=== PATIENT | male | born 2000 | race Caucasian/White ===

== ENCOUNTER → 2024-06-21 | Outpatient (BNVA) | payer MEDICAID, SELFPAY | END | disposition home or self-care (01) | PROVIDERS: PCP Physician Assistant; Referring Provider Physician Assistant; Visit Provider Urology | DX: N31.9 Neuromuscular dysfunction of bladder, unspecified (principal); Q93.59 Other deletions of part of a chromosome; Z93.51 Cutaneous-vesicostomy status; Z97.8 Presence of other specified devices | CPT/HCPCS: 99202; G0463 ==

== ENCOUNTER 2025-02-28 15:10 | Emergency (ER) | payer MEDICAID, SELFPAY ==
[2025-02-28 15:41] VITALS: PULSE 115; RESP 20; TEMP 37.7; O2SAT 99
--- NOTE | 2025-02-28 15:46 | EDRME_ITS ---
Rapid Medical Screening Exam FORMERLY [facility], [facility] Arrival date/time: 02/28/25 15:10 24-year-old male with a history of a developmentally delayed presents to the emergency room with a chief complaint of a fever and abdominal pain. Patient has a stoma in his bladder where his mother uses a catheter to get urine out daily. I have greeted and performed a focused initial assessment of this patient. A comprehensive ED assessment and evaluation of the patient, analysis of all test results, and completion of the medical decision making process will be conducted by additional ED providers. Chief Complaint: Fever Time Seen by Provider: 02/28/25 15:31 Vital signs: Vital Signs Temperature 99.9 F 02/28/25 15:41 Pulse Rate 115 H 02/28/25 15:41 Respiratory Rate 20 02/28/25 15:41 Pulse Oximetry (%) 99 02/28/25 15:41 Oxygen Delivery Method Room Air 02/28/25 15:41 Vital signs reviewed by provider: Yes Exam: Redness warmth around the stoma in his suprapubic area Soft nontender abdomen Clinical Impression: Cellulitis/urinary tract infection/urosepsis
[2025-02-28 15:52] VITALS: TEMP 37.7
[2025-02-28] MEDS: ACETAMINOPHEN SOL 325 MG/10 ML UDC 442 MG GT (15:52)
[2025-02-28 16:33] LABS: Lactate (Lactic Acid) 3.4 mMol/L (0.4-2.0)
[2025-02-28 16:36] LABS: Basophils # (Auto) 0.0 Thou/mm3 (0.0-0.2); Basophils % (Auto) 0 % (0-2.5); Eosinophils # (Auto) 0.0 Thou/mm3 (0.0-0.5); Eosinophils % (Auto) 0 % (0-10); Hematocrit 42.5 % (41.0-53.0); Hemoglobin 14.7 g/dL (13.5-16.0); Immature Granulocytes Auto 0.02 Thou/mm3 (0.00-0.00); Lymphocytes # (Auto) 1.1 Thou/mm3 (1.0-4.8); Lymphocytes % (Auto) 9 % (10-50); Mean Corpuscular HGB Conc 34.6 g/dl (31.0-37.0); Mean Corpuscular Hemoglobin 32.7 pg (25.0-35.0); Mean Corpuscular Volume 95 fL (80-100); Monocytes # (Auto) 1.1 Thou/mm3 (0.0-0.8); Monocytes % (Auto) 9 % (0-12); Neutrophils # (Auto) 10.2 Thou/mm3 (1.8-7.7); Neutrophils % (Auto) 82 % (37-80); Nucleated Red Blood Cell # 0.00 Thou/mm3 (0.00-0.00); Nucleated Red Blood Cell % 0 /100 WBC (0); Platelet Count 172 Thou/mm3 (140-440); RDW Standard Deviation 43.3 fL (35.1-43.9); Red Blood Count 4.49 Miln/mm3 (4.50-5.90); White Blood Count 12.5 Thou/mm3 (3.8-10.6)
[2025-02-28 17:02] LABS: Alanine Aminotransferase 15 U/L (10-49); Albumin, Serum 5.3 gm/dL (3.5-5.0); Albumin/Globulin Ratio 2.0 (1.2-2.2); Alkaline Phosphatase 150 U/L (46-116); Anion Gap 14 (7-16); Aspartate Amino Transferase 28 U/L (0-34); BUN/Creatinine Ratio 15 Ratio (12-20); Bilirubin,Total 0.7 mg/dL (0.3-1.2); Blood Urea Nitrogen 15 mg/dL (9-23); Calcium 10.3 mg/dL (8.3-10.6); Calcium (Corrected) 10.3 mg/dL (8.5-10.1); Carbon Dioxide 26.3 mMol/L (20.0-31.0); Chloride 103 mMol/L (98-107); Creatinine (Component) 1.0 mg/dL (0.6-1.3); Globulin 2.7 gm/dL (2.3-3.5); Glucose 91 mg/dL (74-106); Lipase 32 U/L (12-53); Osmolality,Calculated 285 (275-295); Potassium 4.4 mMol/L (3.4-5.1); Procalcitonin 0.19 ng/ml (0.0-0.49); Sodium 143 mMol/L (136-145); Total Protein 8.0 gm/dL (5.7-8.2); eGFR > 60 See Note
[2025-02-28 18:24] LABS: Collection Type, Urine Clean Catch
[2025-02-28 18:45] LABS: Bilirubin,Urine Negative (Negative); Blood,Urine 2+ (Negative); Color,Urine Yellow (Lt Yel-Yel); Glucose, Urine Negative (Negative); Ketones,Urine Negative (Negative); Leukocyte Esterase,Urine Positive (Negative); Nitrite,Urine Negative (Negative); PH,Urine 5.5 (5.0-7.0); Protein,Urine 1+ (Neg - Trace); RBC,Urine 51 /hpf (0-3); Specific Gravity,Urine 1.022 (1.001-1.035); Squamous Epithelial Cell,Urine 1 /hpf (0-5); Urobilinogen,Urine Negative mg/dL (0.0-1.0); WBC,Urine 1012 /hpf (0-5)
[2025-02-28 18:51] LABS: Clarity,Urine Turbid (Clear/Hazy)
[2025-02-28 19:31] LABS: Reflex Lactate? Y
[2025-02-28 19:48] VITALS: BP 112/58; PULSE 98; RESP 16; TEMP 36.6; O2SAT 99
--- NOTE | 2025-02-28 19:48 | PD.EDADULT ---
ED General RME/HPI General Chief complaint: Fever Stated complaint: FEVER 101.7; C/O PAIN IN UROSTROMY Time Seen by Provider: 02/28/25 15:31 Arrival date/time: 02/28/25 15:10 CC: Playing with his urostomy stoma HPI this patient is severely developmentally delayed nonverbal with a seizure disorder is been playing with his urostomy stoma in his lower abdomen for the past 2 days with a fever today. Family members deny nausea vomiting diarrhea. No other complaint. Fevers responding to ibuprofen and Tylenol. RME / HPI RME / HPI narrative: 02/28/25 15:10 24-year-old male with a history of a developmentally delayed presents to the emergency room with a chief complaint of a fever and abdominal pain. Patient has a stoma in his bladder where his mother uses a catheter to get urine out daily. I have greeted and performed a focused initial assessment of this patient. A comprehensive ED assessment and evaluation of the patient, analysis of all test results, and completion of the medical decision making process will be conducted by additional ED providers. Exam: Redness warmth around the stoma in his suprapubic area Soft nontender abdomen Impression: Cellulitis/urinary tract infection/urosepsis Related Data Home Medications ?Medication ?Instructions ?Recorded ?Confirmed lamotrigine 25 mg tablet 75 mg PO BID 06/21/24 06/21/24 levetiracetam 750 mg tablet 750 mg PO BID 06/21/24 06/21/24 (Keppra) Previous Rx's ?Medication ?Instructions ?Recorded acetaminophen 500 mg/15 mL oral 450 mg (13.5 mL) PO QID PRN fever 02/28/25 liquid or pain #300 mL cephalexin 250 mg/5 mL oral 725 mg (14.5 mL) PO BID #220 mL 02/28/25 suspension Allergies Allergy/AdvReac Type Severity Reaction Status Date / Time chloral hydrate Allergy Severe WON'T WAKE Verified 02/28/25 15:13 UP amoxicillin trihydrate Allergy Unknown UNKNOWN Verified 02/28/25 15:13 potassium clavulanate Allergy Unknown UNKNOWN Verified 02/28/25 15:13 Review of Systems Review of Systems ROS Unobtainable: unobtainable due to mental status Past Medical History Past Medical History CARDIAC: Negative Congestive Heart Failure RESPIRATORY: Negative Chronic Obstructive Pulmonary Disease (COPD) GENITOURINARY: Negative Renal Disease ENDOCRINE: Negative Diabetes Mellitus Type 1 or Diabetes Mellitus Type 2 Social History SMOKING STATUS: Never smoker ED Exam Narrative Physical exam: [General: Appears not in any acute distress Head normocephalic HEENT: Within acceptable limits Neck is supple nontender Chest equal chest rise nontender to palpation Respiratory: Clear to auscultation no wheezes crackles or rubs CV: Rate rhythm is regular no murmurs rubs or clicks Abdomen is distended secondary to body habitus soft nontender no masses positive bowel sounds all 4 quadrants G-tube PEG clean dry and intact, urostomy stoma in the lower left abdomen is clean dry and intact oozing clear urine. No foul odor. Diaper is dry. Back: No CVA tenderness no spinous process tenderness from cervical spine thoracic and lumbar spine Skin: Intact no petechiae rash induration ulceration or crepitus Extremities: Moving all extremity against resistance cap refill less than 2 seconds neurosensory intact Neuro: Awake alert oriented responding to family members tactile stimulation. Note: Baseline per family members. Course Course Course Narrative: Because the patient is nonverbal majority of instructions are given to the family members at bedside. Will be giving the patient oral Tylenol to be given every 8 hours in addition antibiotics will be given to be crushed up and put in the PEG. Family is also encouraged to give an extra couple ounces of water between feeds. Patient family report the patient was on Cipro for a long time and then Macrobid again to avoid urinary tract infections until ultimately it was decided to give him a urostomy stoma. Patient has not had a UTI or urinary symptoms for in approximately 5 years. Quality Measures none Orders Category Date Time Status Saline [Insert IV] NOW Care 02/28/25 18:37 Active Blood Culture (Lab) Stat Lab 02/28/25 16:15 Received CBC Stat Lab 02/28/25 16:15 Completed CMP [Comprehensive Metabolic Panel] Stat Lab 02/28/25 16:15 Completed Lactate (Lactic Acid) Stat Lab 02/28/25 16:15 Completed Lactic Acid, 3 HR Stat Lab 02/28/25 19:31 Ordered Lipase Stat Lab 02/28/25 16:15 Completed Procalcitonin Stat Lab 02/28/25 16:15 Completed UA [Urinalysis] Stat Lab 02/28/25 17:22 Completed Urine Culture Stat Lab 02/28/25 15:45 Received 1,000 mg IM w/Lido* 1% Med 02/28/25 19:48 Ordered cefTRIAXone [Rocephin] 1,000 mg Lidocaine 1% 20 ml [Xylocaine 1% 20 ML] 2.1 ml IM X1 Acetaminophen Fadumo [Tylenol Fadumo] Med 02/28/25 15:45 Discontinued 442 mg GT X1 ONE Ringers Lactated 1000 ml [Lactated Ringers] 1,000 ml Med 02/28/25 18:37 Discontinued IV 999 mls/hr cefTRIAXone/D5w 1gm IV premix [Rocephin/D5w 1gm IV Med 02/28/25 18:37 Discontinued premix] 1 gm in 50 ml IV X1 Vital Signs Vital signs: Vital Signs Temperature 99.9 F 02/28/25 15:41 Pulse Rate 115 H 02/28/25 15:41 Respiratory Rate 20 02/28/25 15:41 Pulse Oximetry (%) 99 02/28/25 15:41 Oxygen Delivery Method Room Air 02/28/25 15:41 Discharge Plan Plan Patient Disposition: HOME (Self Care) Patient condition on transfer: Stable Prescriptions/Referrals Prescriptions/Med Rec: New cephalexin 250 mg/5 mL suspension for reconstitution 725 mg PO BID Qty: 220 0RF acetaminophen 500 mg/15 mL liquid 450 mg PO QID PRN (Reason: fever or pain) Qty: 300 0RF No Action levetiracetam [Keppra] 750 mg tablet 750 mg PO BID lamotrigine 25 mg tablet 75 mg PO BID Referrals: Becky Andrews PA-C [Primary Care Provider] - In 1 week Problem List Clinical Impression: Urinary tract infection Patient/Caregiver Discharge Instructions Other Activity Instructions:: Give the medications both the Tylenol and the antibiotics for the next 2 to 3 days. If there is a worsening of symptoms in spite of these medications return to the emergency room for reevaluation or follow-up with the primary care doctor. Education Materials: ED Bladder Infection, Male (Adult) Print Language: Italian Stand Alone Forms: Martha Award Info., Patient Portal Info Letter, Work/School Release PA/ANGELA Supervising Physician PA/[employer] Supervising Physician: Tutu Stewart ENP MDM Medication Administration(s) Medication Administration History Discontinued Medications Acetaminophen (Acetaminophen Fadumo 325 Mg/10 Ml Udc) 442 mg 15 mg/kg (442 mg) GT X1 ONE Stop: 02/28/25 15:46 Last Admin: 02/28/25 15:52 Dose: 442 mg Documented By: KATY Ceftriaxone Sodium/Dextrose (Rocephin/D5w 1gm Iv Premix) 1 gm in 50 mls @ 100 mls/hr IV X1 ONE Stop: 02/28/25 19:06 Lactated Ringer's (Lactated Ringers) 1,000 mls @ 999 mls/hr IV .Q1H1M ONE Stop: 02/28/25 19:37
[2025-02-28] MEDS: cefTRIAXone 1,000 MG, LIDOCAINE 1% 20 ML 2.1 ML IM (20:48)
== END 2025-02-28 20:57 | disposition home or self-care (01) ==
PROVIDERS: Nurse Practitioner Family; Emergency Provider Emergency Medicine; PCP Physician Assistant
DX: N30.90 Cystitis, unspecified without hematuria (principal)
CPT/HCPCS: 36415; 80053; 81001; 83605; 83690; 84145; 85025; 87040; 87077; 87086; 87186; 96372; 99283; J0696; J3490; A9270